=== PATIENT | female | born 1985 | race Caucasian/White ===

== ENCOUNTER 2019-09-05 01:09 | Day surgery (SDC) | payer OTHER, SELFPAY ==
[2019-09-04 16:12] VITALS: BMI 26.6
[2019-09-05] VITALS (8 sets, daily range): BP systolic 110–139; BP diastolic 65–86; PULSE 83–92; RESP 14–20; TEMP 36.5–37.2; O2SAT 95–100
[2019-09-05] MEDS: LACTATED RINGERS 1,000 ML 30 ML IV CONT ×2 (07:35→10:35)
[2019-09-05 07:58] LABS: Alanine Aminotransferase 17 U/L (4-35); Albumin Level 4.2 g/dL (3.5-5.1); Alkaline Phosphatase 87 U/L (38-126); Amylase 58 U/L (30-110); Aspartate Amino Transferase 20 U/L (14-36); Bilirubin,Total 0.4 mg/dL (0.2-1.3); Lipase 70 U/L (23-300)
--- NOTE | 2019-09-05 08:20 | WPDANESEPPF ---
Anes - Initial Pre Proc Eval Procedure: Operation Date: 09/05/19 09:00 Proposed Procedures p Laparoscopic Cholecystectomy - Heber Lock MD Date/Time: 09/05/19 08:20 Surgeon: Heber Lock MD Pre Op Diagnosis: Chronic cholecystitis Patient Data Age: 33 Gender: F Height: 5 ft 7 in Weight: 77.11 kg Last Vital Signs Temp 98.9 F 09/05/19 07:39 Pulse 92 09/05/19 07:39 Resp 16 09/05/19 07:39 BP 124/85 09/05/19 07:39 Pulse Ox 98 09/05/19 07:39 Allergies Allergy/AdvReac Type Severity Reaction Status Date / Time No Known Allergies Allergy Verified 09/05/19 07:51 Home Medications Medication Instructions Recorded Confirmed Type dextroamphetamine-amphetamine 10 10 mg PO DAILY 08/29/19 09/05/19 History mg tablet fluoxetine 40 mg capsule 80 mg PO DAILY 08/29/19 09/05/19 History montelukast 10 mg tablet 10 mg PO DAILY 08/29/19 09/05/19 History ondansetron HCl 4 mg tablet 4 mg PO Q8H PRN 08/29/19 09/05/19 History aripiprazole 2 mg tablet 2 mg PO QPM 08/30/19 09/05/19 History albuterol sulfate 2 puff INHALATION DIRECTED PRN 09/04/19 09/05/19 History mometasone-formoterol [Dulera] 2 puff INHALATION BID 09/04/19 09/05/19 History multivitamin 1 tablet PO DAILY 09/04/19 09/05/19 History Laboratory Tests 09/05/19 09/05/19 07:25 07:25 Total Bilirubin 0.4 mg/dL mg/dL (0.2-1.3) Direct Bilirubin 0.0 mg/dL mg/dL (0-0.3) AST 20 U/L U/L (14-36) ALT 17 U/L U/L (4-35) Alkaline Phosphatase 87 U/L U/L (38-126) Total Protein 7.0 g/dL g/dL (6.3-8.2) Albumin 4.2 g/dL g/dL (3.5-5.1) Amylase 58 U/L U/L (30-110) Lipase 70 U/L U/L (23-300) Blood Type Pending Antibody Screen Pending Patient hx anesthesia problems: none Family hx anesthesia problems: none [facility] Past Medical History Medical History (Updated 09/04/19 @ 14:27 by Riya Perez) Asthma Depression Kidney stones Surgical History Surgical History (Updated 09/04/19 @ 13:58 by Monisha Ramsey CMA) H/O nephrolithotomy with removal of calculi History of decompression of ulnar nerve left arm nerve release History of hip surgery right labral 2017 History of lithotripsy 2016 right ESWL 2018 History of surgery on arm bicep Status post cystoscopy left ureteral stent removal Status post cystoscopy with ureteral stent placement 2018 Social History Social History Smoking status: Never smoker Alcohol intake: current Additional occupation/education comments: [employer] Final PreProcedure Day of Procedure 09/05/19 08:20 Patient weight: overweight Heart: regular rate and rhythm Lungs: clear to auscultation Airway: Mallampati scale class II Neurological: alert and oriented Last oral intake: >/= 8 hours ASA classification: II Emergent: no Anesthetic plan: proceed Anesthesia type and monitoring: general ETT and standard monitoring Informed Consent: The patient's anesthetic plan and its attendant risks and benefits were discussed with the patient/family/POA. Questions were solicited and answers provided to the satisfaction of the patient/family/POA.
--- NOTE | 2019-09-05 08:39 | WPDHPUPDATE1 ---
History and Physical Update Update Date/Time: 09/05/19 08:39 History and Physical has been reviewed, including an updated exam of the patient. There are NO changes in the patient's condition. Risks, benefits, and alternatives have been discussed and questions answered. Patient agrees to proceed with procedure.
[2019-09-05] MEDS: ceFAZolin 2 GM/D5W 50 ML 2 GM/50 ML BAG IVPB (09:23)
--- NOTE | 2019-09-05 09:24 | PM.PROC ---
Procedure Note - Detailed Date of procedure: 09/05/19 Pre-op diagnosis: Chronic cholecystitis Chronic cholecystitis Post-op diagnosis: other (Chronic cholecystitis, hemoperitoneum, bilateral ovarian cysts) Procedure performed: Laparoscopic cholecystectomy Description of procedure: The patient was taken to surgery and induced into general anesthesia. The abdomen was prepped and draped. Trocars were placed in the usual fashion using 0.5% Marcaine with epinephrine and applied Medical optical trocars. A 5 millimeter camera was used. Upon entering the abdomen, it was obvious that the patient had hemoperitoneum. This was not a lot of blood and it seemed to be mostly in the pelvis. There was some blood-stained bowel serosa in the generalized abdominal cavity as well. The patient was placed in Trendelenburg and I reviewed the uterus and both ovaries. There were clots in this area which was the only area in which I did seek blood clots. She had bilateral ovarian cysts. I could see the site of bleeding on either cyst but this seemed to be the likely source. The left-sided cyst was the larger. I took pictures intraoperatively of both cysts. I had seen the patient preoperatively and she had a benign abdominal exam. I did not see any sign of active bleeding. I chose not to investigate this further but will get an H&H postoperatively. We then returned the patient to reverse Trendelenburg and resumed are normal use of the laparoscopic instruments aimed at the right upper quadrant. The gallbladder was elevated and reviewed. The gallbladder was decompressed with a laparoscopic aspirator. The cholecystotomy was closed with a Vicryl endo-loop. The gallbladder was retracted anterosuperiorly. Traction was placed on the infundibulum. The cystic duct and cystic artery were dissected out very clearly. The gallbladder was dissected off the liver at its lower 3rd. Critical view was achieved. We securely clipped and divided the cystic duct and cystic artery. The gallbladder was then further retracted so that the peritoneal attachments to the liver could be divided. Once the gallbladder was freed entirely, it was placed in an Endo-Catch bag and retrieved through the 10 11 epigastric trocar site. The epigastric trocar was then replaced. We reviewed the right upper quadrant. It was irrigated and suctioned. All looked good with no evidence of bleeding or bile leakage. We evacuated CO2 and removed the trocar sleeves. Skin wounds were closed with subcuticular 4 O Monocryl skin suture. The wounds were dressed with Exofin surgical adhesive. Patient was awakened and taken to recovery in good condition. Sponge and needle counts were correct x2. Anesthesia: GETA and local (0.5% Marcaine with epinephrine) Surgeon: Heber Lock MD Seismograph Supervisor: Mireille ABEL Estimated blood loss (mL): 5 Drains: No Packing: No Pathology: yes (Gallbladder) Complications: None Condition: stable Disposition: PACU Findings: Mild chronic inflammation. No biliary ductal dilatation, no liver abnormalities. Hemoperitoneum predominantly in the pelvis with bilateral ovarian cysts. Most likely diagnosis is ruptured ovarian cyst. No significant quantities of blood in the abdomen.
[2019-09-05] MEDS: BUPIVACAINE/EPINEPHRINE 0.5% 30 ML VIAL 10 ML INFILTRATE (10:08)
[2019-09-05 10:57] LABS: Hematocrit 35.1 % (37.0-47.0); Hemoglobin 11.7 g/dL (12.0-15.0)
[2019-09-05] MEDS: HYDROMORPHONE HCL 1 MG/ML INJ 0.5 MG IV PUSH ×2 (12:05→12:20)
--- NOTE | 2019-09-05 12:59 | SUR.PHASEII ---
1300; PT DRESSED. READY FOR DISCHARGE. STATES PAIN 05/15. WAITING ON RIDE
== END 2019-09-05 13:14 | disposition home or self-care (01) ==
PROVIDERS: Visit Provider Surgery
PROC: 0FT44ZZ Resection of Gallbladder, Percutaneous Endoscopic Approach (ICD-10-PCS; CPT 47562; principal; 2019-09-05 09:00)
DX: K81.1 Chronic cholecystitis (principal); J45.909 Unspecified asthma, uncomplicated; F32.9 Major depressive disorder, single episode, unspecified
CPT/HCPCS: 47562; 36415; 80076; 82150; 83690; 85014; 85018; 86850; 86900; 86901; 88304; A9270; C1713; J0131; J0330; J0690; J1100; J1170; J2250; J2405; J2704; J2710; J3010; J7120

== ENCOUNTER 2020-08-31 16:20 | Emergency (ER) | payer OTHER, SELFPAY ==
--- NOTE | ~2020-08-31 | CT_ITS ---
EXAMINATION: CT BRAIN W/O DATE: 08/31/2020 17:03 INDICATION: Headache. Patient found unresponsive. TECHNIQUE: Computed tomography (CT) of the head was performed without intravenous contrast. The dose- length product was 605.33 mGy-cm. Automated exposure control and iterative reconstruction technique w ere employed. COMPARISON: No prior studies for comparison. FINDINGS: Normal brain parenchymal volume for age. Normal montez-white differentiation. No acute intrac ranial hemorrhage, infarction, mass or mass effect. No ventriculomegaly or midline shift. Midline sagittal images demonstrate a normal corpus callosum, c raniovertebral junction and sella turcica. Basilar cisterns are patent. Paranasal sinuses and mastoids are pneumatized. No depressed skull fractures. IMPRESSION: 1. No acute intracranial abnormality. Reviewed, dictated and finalized at location A.
[2020-08-31 16:22] VITALS: BP 156/84; PULSE 130; RESP 15; TEMP 37.1; O2SAT 100
--- NOTE | 2020-08-31 16:30 | ECG_ITS ---
Measurements Intervals [place] Rate: 121 P: 38 ND: 159 QRS: -5 QRSD: 80 T: 79 QT: 339 QTc: 483 Interpretive Statements SINUS TACHYCARDIA BASELINE ARTIFACT- I, II, III, AVR, AVL, AVF, V1-V6 ABNORMAL ECG Electronically Signed On 08-31-2020 18:25:07 CDT by Luis Carlos Rivera D.O.
[2020-08-31 16:35] LABS: Glucose Point of Care 118 mg/dl (65-105)
--- NOTE | 2020-08-31 16:38 | PC.NURSE ---
Dr. Ugalde in room doing exam, after testing dropping her arms a couple times, pt spontaneously woke up. Pt able to talk and answer questions appropriately. Sister in room and states that she was driving with her and she was c/o migraine and she states that she went to sleep and they were unable to wake her up.
[2020-08-31 16:44] LABS: Basophils Absolute Auto 0.1 K/mm3 (0.0-0.1); Basophils Percent Auto 0.6 % (0.2-1.2); Eosinophils Percent Auto 0.2 % (0-4.4); Hematocrit 38.5 % (37.0-47.0); Hemoglobin 13.2 g/dL (12.0-15.0); Immature Granulocyte Absolute 0.06 K/mm3 (0.00-0.031); Immature Granulocyte Percent A 0.5 % (0-0.5); Lymphocytes Absolute Auto 3.01 K/mm3 (0.9-3.2); Lymphocytes Percent Auto 22.7 % (18.3-44.2); Mean Corpuscular HGB Conc 34.3 g/dl (32-36); Mean Corpuscular Hemoglobin 29.3 pg (26-34); Mean Corpuscular Volume 85.6 fl (80-100); Mean Platelet Volume 8.7 fl (7.4-10.4); Monocytes Absolute Auto 0.8 K/mm3 (0.1-0.6); Monocytes Percent Auto 5.7 % (2.6-8.5); Neutrophils Absolute Auto 9.4 K/mm3 (1.3-6.7); Neutrophils Percent Auto 70.3 % (45.5-73.1); Platelet Count Result 427 k/mm3 (150-375); White Blood Count 13.3 K/mm3 (4.5-10.0)
[2020-08-31 16:48] LABS: Add Urine Microscopic? YES; Appearance Urine Clear (Clear); Bilirubin Urine Negative (Negative); Blood Urine Negative (Negative); Color Urine Yellow (Yellow); Glucose Urine UA Negative (Negative); Ketones Urine Negative (Negative); Leukocyte Esterase Ur Trace LEU/UL (Negative); Mucus Urine Few /lpf; Nitrate Urine Negative (Negative); Protein Urine 2+ mg/dL (Negative); Squamous Epithelial Cell Urine Moderate /hpf (Few)
[2020-08-31 16:52] LABS: Specific Grav Ur 1.036 (1.001-1.035)
[2020-08-31 16:56] LABS: Alanine Aminotransferase 21 U/L (4-35); Albumin Level 4.4 g/dL (3.5-5.1); Alkaline Phosphatase 102 U/L (38-126); Anion Gap 6 mmol/L (8-16); Aspartate Amino Transferase 30 U/L (14-36); Bilirubin,Total 0.3 mg/dL (0.2-1.3); Blood Urea Nitrogen 15 mg/dL (7-17); Calcium 9.8 mg/dL (8.4-10.2); Carbon Dioxide 34 mmol/L (22-30); Chloride 101 mmol/L (98-107); Estimated Glomerular Filt Rate 58; Glucose 137 mg/dL (65-105); Potassium 3.1 mmol/L (3.4-5.0); Sodium 141 mmol/L (137-145)
[2020-08-31 17:07] LABS: Amphetamine Screen Urine Negative (Negative); Barbiturate Screen Urine Negative (Negative); Benzodiazepines Screen Urine Negative (Negative); Cannabinoid Screen Urine Positive (Negative); Cocaine Screen Urine Negative (Negative); Methadone Screen Urine Negative (Negative); Opiate Screen Urine Negative (Negative); Phencyclidine Screen Urine Negative (Negative)
[2020-08-31] MEDS: LORazepam INJ (*CRX) 2 MG/ML VIAL 1 MG IV PUSH (17:08)
[2020-08-31] MEDS: KETOROLAC 30 MG/ML VIAL (*BKC) IV PUSH (17:08)
[2020-08-31] MEDS: METOCLOPRAMIDE HCL INJ 10 MG/2 ML VIAL IV PUSH (17:09)
[2020-08-31] MEDS: diphenhydrAMINE HCl INJ 50 MG/ML VIAL 25 MG IV PUSH (17:09)
--- NOTE | 2020-08-31 17:14 | ED.AMS ---
HPI - Altered Mental Status General Chief Complaint: Altered Mental Status Stated Complaint: unresponsive Time Seen by Provider: 08/31/20 16:32 Source: family and RN notes reviewed Limitations: clinical condition History of Present Illness HPI narrative: Patient is 34 years old white female brought to the emergency room by her family because of unresponsiveness to verbal or painful stimulation within 30 to 40 minutes prior to arrival to the emergency room. Patient had headache few hours ago similar to her regular migraine headache which she she have once every 2 to 3 days. And was in the way to visit a family then became unresponsive inside the car. The family is telling me that patient had no fever, chills, nausea, vomiting, shortness of breath, chest pain just depressed.. While trying to lIft patient hand to drop it on her face ,patient avoided hitting her face few times and suddenly opened her eyes and the start talking to me. And agreed about too much stress and depression lately related to work and home. Related Data Home Medications Medication Instructions Recorded Confirmed dextroamphetamine-amphetamine 10 10 mg PO DAILY 08/29/19 09/18/19 mg tablet fluoxetine 40 mg capsule 80 mg PO DAILY 08/29/19 09/18/19 montelukast 10 mg tablet 10 mg PO DAILY 08/29/19 09/18/19 ondansetron HCl 4 mg tablet 4 mg PO Q8H PRN 08/29/19 09/18/19 aripiprazole 2 mg tablet 2 mg PO QPM 08/30/19 09/18/19 Dulera 2 puff INHALATION BID 09/04/19 09/18/19 albuterol sulfate 2 puff INHALATION DIRECTED PRN 09/04/19 09/18/19 multivitamin 1 tablet PO DAILY 09/04/19 09/18/19 Allergies Allergy/AdvReac Type Severity Reaction Status Date / Time No Known Allergies Allergy Verified 08/31/20 16:42 Review of Systems Review of Systems: Narrative: CONSTITUTIONAL: Denies fever, chills, or sweats. EYES: Denies visual changes, redness, or discharge. ENT: Denies rhinorrhea, congestion, sore throat, or otalgia. CARDIOVASCULAR: Denies chest pain, palpitations, or edema. RESPIRATORY: Denies cough or dyspnea. GASTROINTESTINAL: Denies abdominal pain, nausea, vomiting, or diarrhea. GENITOURINARY: Denies dysuria or hematuria. SKIN: Denies rash or itching. MUSCULOSKELETAL: Denies back pain, joint pain, or myalgia. NEUROLOGIC: Denies headache, numbness, or weakness. PSYCHIATRIC: Denies anxiety or depression. FORMERLY [facility] Past Medical History Medical History (Updated 08/31/20 @ 17:22 by Jim Ugalde MD) Asthma Depression Kidney stones Surgical History Surgical History H/O nephrolithotomy with removal of calculi History of decompression of ulnar nerve left arm nerve release History of hip surgery right labral 2017 History of lithotripsy 2016 right ESWL 2018 History of surgery on arm bicep Status post cystoscopy left ureteral stent removal Status post cystoscopy with ureteral stent placement 2018 Family History Family History Unknown Heart disease Social History Social History Smoking status: Never smoker Alcohol intake: current 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 Musculoskeletal: Normal range of motion, nontender back Neurologic: Alert and oriented ?3, CORRECTIONAL THERAPY DIRECTOR is normal as tested, no gross motor deficit
[2020-08-31 18:13] VITALS: BP 139/80; PULSE 112; RESP 18; O2SAT 100
== END 2020-08-31 18:15 | disposition home or self-care (01) ==
PROVIDERS: Emergency Medicine; Nurse Practitioner; Emergency Provider Emergency Medicine
DX: F44.9 Dissociative and conversion disorder, unspecified (principal); G43.709 Chronic migraine without aura, not intractable, without status migrainosus; F32.9 Major depressive disorder, single episode, unspecified; J45.909 Unspecified asthma, uncomplicated; Z87.442 Personal history of urinary calculi; R00.0 Tachycardia, unspecified; Z79.899 Other long term (current) drug therapy
CPT/HCPCS: 36415; 51701; 70450; 80053; 80307; 81001; 81025; 82948; 85025; 93005; 96374; 96375; 99284; A9270; J1200; J1885; J2060; J2765